=== PATIENT | male | born 1965 | race Caucasian/White ===

== ENCOUNTER 2016-06-13 23:17 | Emergency (ER) | payer MEDICAID, OTHER ==
[~2016-06-13] VITALS: Ht 172.7 cm; Wt 70.0 kg
[~2016-06-13 23:17] MED LIST: NO MEDS
[2016-06-13 23:22] VITALS: Ht 172.7 cm; Wt 70.0 kg
[2016-06-13] MEDS ORDERED: METHYLPREDNISOLONE 125 MG INJ IV STA (23:31)
[2016-06-13] MEDS ORDERED: IPRATROPIUM (NEB) 0.5 MG/2.5 ML AMP INH STA (23:31)
[2016-06-13] MEDS ORDERED: LEVALBUTEROL (NEB) 1.25 MG/0.5 ML AMP INH STA (23:31)
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
[2016-06-14] MEDS ORDERED: SOD CHLORIDE 0.9% 1,000 ML IV ONE
[2016-06-14] MEDS ORDERED: MAGNESIUM SULFATE 2 GM/50 ML 50 ML IVPB ONE
[2016-06-14 00:16] LABS: POTASSIUM 4.5 mmol/L (3.5-5.1)
[2016-06-14 00:18] LABS: CREATININE 0.9 mg/dl (0.61-1.24)
[2016-06-14 00:19] LABS: CALCIUM 9.3 mg/dl (8.4-10.2)
--- NOTE | 2016-06-14 00:23 | RADRPT ---
PROCEDURE: CHEST - 1 VIEW CLINICAL INDICATION: 50-year-old male with shortness of breath and asthma exacerbation. TECHNIQUE: A single frontal AP view of the chest was performed portably. The images were reviewed on a PACS workstation. COMPARISON: None. FINDINGS: The cardiomediastinal silhouette has a normal appearance. There is no evidence for an infiltrate. There is no evidence for congestive heart failure. There is no evidence for pneumothorax. The osseou s structures are intact. IMPRESSION: No evidence for active cardiopulmonary disease. .Garett Benítez MD, MD Date Time Electronically viewed and signed by .Garett Benítez MD, on 06/14/2016 00:22 .M/
[2016-06-14 00:27] LABS: BASOPHIL # 0.1 10^3/ul (0.0-0.1); BASOPHILS % 0.5 % (0.0-2.0); EOSINOPHILS # 1.7 10^3/ul (0.0-0.5); EOSINOPHILS % 14.1 % (0.0-7.0); HEMATOCRIT 45.2 % (42.0-52.0); HEMOGLOBIN 15.3 g/dl (14.0-18.0); LYMPHOCYTES # 4.8 10^3/ul (0.8-2.9); LYMPHOCYTES % 38.7 % (15.0-51.0); MEAN CORPUSCULAR HEMOGLOBIN 31.3 pg (29.0-33.0); MEAN CORPUSCULAR HGB CONC 33.8 g/dl (32.0-37.0); MEAN CORPUSCULAR VOLUME 92.6 fl (82.0-101.0); MEAN PLATELET VOLUME 8.1 fl (7.4-10.4); MONOCYTE # 0.7 10^3/ul (0.3-0.9); MONOCYTES % 5.7 % (0.0-11.0); PLATELET COUNT 320 10^3/UL (140-440); RED BLOOD COUNT 4.89 10^6/ul (4.70-6.10); RED CELL DISTRIBUTION WIDTH 13.1 % (11.5-14.5); UNCORRECTED WBC 12.3 10^3/ul (4.8-10.8); WHITE BLOOD COUNT 12.3 10^3/ul (4.8-10.8)
[2016-06-14 00:31] LABS: CONDITION 1
[2016-06-14 02:05] LABS: Arterial COHb 0.3 % (0.0-3.0); Arterial Fraction of Oxyhgb 92.1 % (93.0-99.0); Arterial HCO3 26.5 mmol/L (22.0-26.0); Arterial MetHb 0.3 % (0.0-1.5); Arterial Total Hemglobin 14.9 g/dl (12.0-18.0); MODE ROOM AIR
[2016-06-14] MEDS ORDERED: IPRATROPIUM (NEB) 0.5 MG/2.5 ML AMP INH STA (02:10)
[2016-06-14] MEDS ORDERED: LEVALBUTEROL (NEB) 1.25 MG/0.5 ML AMP INH STA (02:10)
[2016-06-14] MEDS ORDERED: BECL8.7A INH (03:12)
[2016-06-14] MEDS ORDERED: ALBU8.5H3 INH (03:12)
[2016-06-14] MEDS ORDERED: PRED20TA PO (03:12)
[2016-06-14 04:21] VITALS: BP 126/81; PULSE 75; RESP 20; TEMP 98.7
== END 2016-06-14 04:25 | disposition home or self-care (01) ==
LOC: E/R 23:17
DX: J45.901 Unspecified asthma with (acute) exacerbation (principal)
CPT/HCPCS: 36600; 71010; 80048; 82803; 85025; 87400; 94644; 96374; 96375; J2930; J3475; J7030; Z7502; Z7610

== ENCOUNTER 2017-07-23 08:14 | Day surgery (SDC) | END 2017-07-23 11:19 | disposition home or self-care (01) ==